=== PATIENT | male | born 1970 | race African-American/Black ===

== ENCOUNTER 2018-10-05 23:37 | Emergency (ER) | payer MEDICAID ==
[~2018-10-05] VITALS: Ht 172.7 cm; Wt 78.0 kg
[2018-10-06] MEDS ORDERED: TETANUS, DIPHTHERIA, PERTUSSIS VAC/PF 0.5ML (>7YR OLD) IM ONE (01:30)
[2018-10-06] MEDS ORDERED: IBUPROFEN 600MG TABLET PO ONE (01:30)
[2018-10-06 02:42] VITALS: BP 129/95
== END 2018-10-06 03:25 | disposition home or self-care (01) ==
LOC: ER 23:37
DX: S60.861A Insect bite (nonvenomous) of right wrist, initial encounter (principal); L03.113 Cellulitis of right upper limb; Z98.890 Other specified postprocedural states; W57.XXXA Bitten or stung by nonvenomous insect and other nonvenomous arthropods, initial encounter; Y93.89 Activity, other specified; Y92.89 Other specified places as the place of occurrence of the external cause; Y99.8 Other external cause status
CPT/HCPCS: 90471; 90715; 99283

== ENCOUNTER 2018-10-09 12:07 | Emergency (ER) | payer MEDICAID ==
[~2018-10-09] VITALS: Ht 172.7 cm; Wt 78.0 kg
[2018-10-09 12:17] VITALS: BP 118/77
[2018-10-09] MEDS ORDERED: ACETAMINOPHEN 500MG TABLET PO NR (14:13)
== END 2018-10-09 14:31 | disposition home or self-care (01) ==
LOC: ER 12:07
DX: L02.413 Cutaneous abscess of right upper limb (principal); L03.113 Cellulitis of right upper limb
CPT/HCPCS: 10060; 99283

== ENCOUNTER 2018-10-11 16:34 | Emergency (ER) | payer MEDICAID ==
[~2018-10-11] VITALS: Ht 172.7 cm; Wt 78.0 kg
[2018-10-11 19:14] VITALS: BP 121/91
[2018-10-11] MEDS ORDERED: BACITRACIN ZINC OINT UDPKT TOP ONE (19:45)
== END 2018-10-11 20:19 | disposition home or self-care (01) ==
LOC: ER 16:39
DX: Z48.00 Encounter for change or removal of nonsurgical wound dressing (principal)
CPT/HCPCS: 99282